=== PATIENT | female | born 1970 | race Caucasian/White ===

== ENCOUNTER 2016-05-11 05:19 | Outpatient (RCR) | payer MEDICARE, MEDICAID ==
[~2016-05-11] VITALS: Ht 180.3 cm; Wt 65.3 kg
[2016-05-11] MEDS ORDERED: Succinylcholine 20mg/ml 10ml vial ONE (05:20)
[2016-05-11] MEDS ORDERED: Glycopyrrolate 0.2mg/ml 1ml Vial ONE (05:20)
[2016-05-11] MEDS ORDERED: NS 550ML IV ONE (05:20)
[2016-05-11] MEDS ORDERED: Midazolam 2mg/2ml Inj ONE (05:20)
[2016-05-11] MEDS ORDERED: Methohexital Sodium Syr 100mg/10ml IVP ONE (05:20)
== END 2016-05-26 | disposition home or self-care (01) ==
LOC: ECT 05:19
DX: F25.9 Schizoaffective disorder, unspecified (principal); F06.1 Catatonic disorder due to known physiological condition
CPT/HCPCS: 90870; J0330; J2250; J7040

== ENCOUNTER 2016-07-15 06:54 | Outpatient (RCR) | payer MEDICARE, MEDICAID ==
[~2016-07-15] VITALS: Ht 180.3 cm; Wt 65.3 kg
[2016-07-15] MEDS ORDERED: Midazolam 2mg/2ml Inj ONE ×2 (06:55)
[2016-07-15] MEDS ORDERED: NS 550ML IV ONE ×2 (06:55)
[2016-07-15] MEDS ORDERED: Methohexital Sodium Syr 100mg/10ml IVP ONE ×2 (06:55)
[2016-07-15] MEDS ORDERED: Glycopyrrolate 0.2mg/ml 1ml Vial ONE ×2 (06:55)
[2016-07-15] MEDS ORDERED: Succinylcholine 20mg/ml 10ml vial ONE ×2 (06:55)
[2016-07-15] MEDS ORDERED: Atropine Sulfate 0.4mg/ml inj IVP PRN (08:00)
[2016-07-20] MEDS ORDERED: NS 550ML IV ONE (07:00)
[2016-07-20] MEDS ORDERED: Succinylcholine 20mg/ml 10ml vial ONE (07:00)
[2016-07-20] MEDS ORDERED: Methohexital Sodium Syr 100mg/10ml IVP ONE (07:00)
[2016-07-20] MEDS ORDERED: Midazolam 2mg/2ml Inj ONE (07:00)
[2016-07-20] MEDS ORDERED: Glycopyrrolate 0.2mg/ml 1ml Vial ONE (07:00)
[2016-07-22] MEDS ORDERED: Glycopyrrolate 0.2mg/ml 1ml Vial ONE (07:00)
[2016-07-22] MEDS ORDERED: Midazolam 2mg/2ml Inj ONE (07:00)
[2016-07-22] MEDS ORDERED: Succinylcholine 20mg/ml 10ml vial ONE (07:00)
[2016-07-22] MEDS ORDERED: NS 550ML IV ONE (07:00)
[2016-07-22] MEDS ORDERED: Methohexital Sodium Syr 100mg/10ml IVP ONE (07:00)
[2016-07-24] MEDS ORDERED: Succinylcholine 20mg/ml 10ml vial ONE (09:02)
[2016-07-24] MEDS ORDERED: Methohexital Sodium Syr 100mg/10ml IVP ONE (09:02)
[2016-07-24] MEDS ORDERED: Glycopyrrolate 0.2mg/ml 1ml Vial ONE (09:02)
[2016-07-24] MEDS ORDERED: Midazolam 2mg/2ml Inj ONE (09:02)
[2016-07-24] MEDS ORDERED: NS 550ML IV ONE (09:02)
== END 2016-07-24 | disposition home or self-care (01) ==
LOC: ECT 06:54
DX: F25.9 Schizoaffective disorder, unspecified (principal)
CPT/HCPCS: 90870; J0330; J2250; J7040

== ENCOUNTER 2016-07-27 10:59 | Outpatient (RCR) | payer MEDICARE, MEDICAID ==
[~2016-07-27] VITALS: Ht 180.3 cm; Wt 65.3 kg
[2016-07-27] MEDS ORDERED: Midazolam 2mg/2ml Inj ONE ×3 (11:00)
[2016-07-27] MEDS ORDERED: Glycopyrrolate 0.2mg/ml 1ml Vial ONE ×3 (11:00)
[2016-07-27] MEDS ORDERED: Methohexital Sodium Syr 100mg/10ml IVP ONE ×3 (11:00)
[2016-07-27] MEDS ORDERED: NS 550ML IV ONE ×3 (11:00)
[2016-07-27] MEDS ORDERED: Succinylcholine 20mg/ml 10ml vial ONE ×3 (11:00)
[2016-07-29] MEDS ORDERED: Succinylcholine 20mg/ml 10ml vial ONE (12:30)
[2016-07-29] MEDS ORDERED: Methohexital Sodium Syr 100mg/10ml IVP ONE (12:30)
[2016-07-29] MEDS ORDERED: Glycopyrrolate 0.2mg/ml 1ml Vial ONE (12:30)
[2016-07-29] MEDS ORDERED: NS 550ML IV ONE (12:30)
[2016-07-29] MEDS ORDERED: Midazolam 2mg/2ml Inj ONE (12:30)
[2016-07-31] MEDS ORDERED: Glycopyrrolate 0.2mg/ml 1ml Vial ONE ×2 (08:00)
[2016-07-31] MEDS ORDERED: Methohexital Sodium Syr 100mg/10ml IVP ONE ×2 (08:00)
[2016-07-31] MEDS ORDERED: Midazolam 2mg/2ml Inj ONE (08:00)
[2016-07-31] MEDS ORDERED: NS 550ML IV ONE ×2 (08:00)
[2016-07-31] MEDS ORDERED: Succinylcholine 20mg/ml 10ml vial ONE ×2 (08:00)
[2016-08-03] MEDS ORDERED: Atropine Sulfate 0.4mg/ml inj IVP PRN (17:30)
[2016-08-07] MEDS ORDERED: Methohexital Sodium Syr 100mg/10ml IVP ONE (21:18)
[2016-08-07] MEDS ORDERED: NS 550ML IV ONE (21:18)
[2016-08-07] MEDS ORDERED: Succinylcholine 20mg/ml 10ml vial ONE (21:18)
[2016-08-07] MEDS ORDERED: Midazolam 2mg/2ml Inj ONE (21:18)
[2016-08-07] MEDS ORDERED: Glycopyrrolate 0.2mg/ml 1ml Vial ONE (21:18)
[2016-08-10] MEDS ORDERED: Methohexital Sodium Syr 100mg/10ml IVP ONE (08:00)
[2016-08-10] MEDS ORDERED: NS 550ML IV ONE (08:00)
[2016-08-10] MEDS ORDERED: Glycopyrrolate 0.2mg/ml 1ml Vial ONE (08:00)
[2016-08-10] MEDS ORDERED: Succinylcholine 20mg/ml 10ml vial ONE (08:00)
[2016-08-10] MEDS ORDERED: Midazolam 2mg/2ml Inj ONE (08:00)
[2016-08-14] MEDS ORDERED: Methohexital Sodium Syr 100mg/10ml IVP ONE (08:00)
[2016-08-14] MEDS ORDERED: NS 550ML IV ONE (08:00)
[2016-08-14] MEDS ORDERED: Midazolam 2mg/2ml Inj ONE (08:00)
[2016-08-14] MEDS ORDERED: Succinylcholine 20mg/ml 10ml vial ONE (08:00)
[2016-08-14] MEDS ORDERED: Glycopyrrolate 0.2mg/ml 1ml Vial ONE (08:00)
[2016-08-19] MEDS ORDERED: Atropine Sulfate 0.4mg/ml inj IVP PRN (09:33)
== END 2016-08-23 | disposition home or self-care (01) ==
LOC: ECT 10:59
DX: F25.9 Schizoaffective disorder, unspecified (principal)
CPT/HCPCS: 90870; J0330; J2250; J7040

== ENCOUNTER 2016-08-26 05:18 | Outpatient (RCR) | payer MEDICARE, MEDICAID ==
[~2016-08-26] VITALS: Ht 180.3 cm; Wt 65.3 kg
[2016-08-26] MEDS ORDERED: Midazolam 2mg/2ml Inj ONE (05:19)
[2016-08-26] MEDS ORDERED: Succinylcholine 20mg/ml 10ml vial ONE (05:19)
[2016-08-26] MEDS ORDERED: Methohexital Sodium Syr 100mg/10ml IVP ONE (05:19)
[2016-08-26] MEDS ORDERED: NS 550ML IV ONE (05:19)
[2016-08-26] MEDS ORDERED: Glycopyrrolate 0.2mg/ml 1ml Vial ONE (05:19)
[2016-09-07] MEDS ORDERED: Glycopyrrolate 0.2mg/ml 1ml Vial ONE (07:00)
[2016-09-07] MEDS ORDERED: Succinylcholine 20mg/ml 10ml vial ONE (07:00)
[2016-09-07] MEDS ORDERED: Midazolam 2mg/2ml Inj ONE (07:00)
[2016-09-07] MEDS ORDERED: Methohexital Sodium Syr 100mg/10ml IVP ONE (07:00)
[2016-09-07] MEDS ORDERED: NS 550ML IV ONE (07:00)
== END 2016-09-23 | disposition home or self-care (01) ==
LOC: ECT 05:18
DX: F25.9 Schizoaffective disorder, unspecified (principal)
CPT/HCPCS: 90870; J0330; J2250; J7040

== ENCOUNTER 2016-09-25 06:41 | Outpatient (RCR) | payer MEDICARE, MEDICAID ==
[~2016-09-25] VITALS: Ht 180.3 cm; Wt 65.3 kg
[2016-09-25] MEDS ORDERED: Atropine Sulfate 0.4mg/ml inj IVP PRN (09:25)
[2016-10-16] MEDS ORDERED: NS 550ML IV ONE (08:00)
[2016-10-16] MEDS ORDERED: Midazolam 2mg/2ml Inj ONE (08:00)
[2016-10-16] MEDS ORDERED: Methohexital Sodium Syr 100mg/10ml IVP ONE (08:00)
[2016-10-16] MEDS ORDERED: Succinylcholine 20mg/ml 10ml vial ONE (08:00)
[2016-10-16] MEDS ORDERED: Glycopyrrolate 0.2mg/ml 1ml Vial ONE (08:00)
== END 2016-10-23 | disposition home or self-care (01) ==
LOC: ECT 06:41
DX: F25.9 Schizoaffective disorder, unspecified (principal)
CPT/HCPCS: 90870; J0330; J2250; J7040

== ENCOUNTER 2016-11-13 05:45 | Outpatient (RCR) | payer MEDICARE, MEDICAID ==
[~2016-11-13] VITALS: Ht 180.3 cm; Wt 65.3 kg
[2016-11-13] MEDS ORDERED: Midazolam 2mg/2ml Inj ONE (05:46)
[2016-11-13] MEDS ORDERED: Methohexital Sodium Syr 100mg/10ml IVP ONE (05:46)
[2016-11-13] MEDS ORDERED: Succinylcholine 20mg/ml 10ml vial ONE (05:46)
[2016-11-13] MEDS ORDERED: NS 550ML IV ONE (05:46)
[2016-11-13] MEDS ORDERED: Glycopyrrolate 0.2mg/ml 1ml Vial ONE (05:46)
== END 2016-11-23 | disposition home or self-care (01) ==
LOC: ECT 05:45
DX: F25.9 Schizoaffective disorder, unspecified (principal)
CPT/HCPCS: 90870; J0330; J2250; J7040

== ENCOUNTER 2016-12-16 10:14 | Outpatient (RCR) | payer MEDICARE, MEDICAID ==
[~2016-12-16] VITALS: Ht 180.3 cm; Wt 65.3 kg
[2016-12-16] MEDS ORDERED: NS 550ML IV ONE (10:15)
[2016-12-16] MEDS ORDERED: Succinylcholine 20mg/ml 10ml vial ONE (10:15)
[2016-12-16] MEDS ORDERED: Midazolam 2mg/2ml Inj ONE (10:15)
[2016-12-16] MEDS ORDERED: Methohexital Sodium Syr 100mg/10ml IVP ONE (10:15)
[2016-12-16] MEDS ORDERED: Glycopyrrolate 0.2mg/ml 1ml Vial ONE (10:15)
== END 2016-12-24 | disposition home or self-care (01) ==
LOC: ECT 10:14
DX: F25.9 Schizoaffective disorder, unspecified (principal)
CPT/HCPCS: 90870; J0330; J2250; J7040

== ENCOUNTER 2017-01-13 07:16 | Outpatient (RCR) | payer MEDICARE, MEDICAID ==
[~2017-01-13] VITALS: Ht 180.3 cm; Wt 65.3 kg
[2017-01-13] MEDS ORDERED: Methohexital Sodium Syr 100mg/10ml IVP ONE (07:17)
[2017-01-13] MEDS ORDERED: Succinylcholine 20mg/ml 10ml vial ONE (07:17)
[2017-01-13] MEDS ORDERED: NS 500ML IV ONE (07:17)
[2017-01-13] MEDS ORDERED: Midazolam 2mg/2ml Inj ONE (07:17)
[2017-01-13] MEDS ORDERED: Glycopyrrolate 0.2mg/ml 1ml Vial ONE (07:17)
[2017-01-13] MEDS ORDERED: Sodium Chloride 500ML 500 ML IV ONE (09:31)
== END 2017-01-23 | disposition home or self-care (01) ==
LOC: ECT 07:16
DX: F25.9 Schizoaffective disorder, unspecified (principal)
CPT/HCPCS: 90870; J0330; J2250; J7040

== ENCOUNTER 2017-02-12 06:53 | Outpatient (RCR) | payer MEDICARE, MEDICAID ==
[~2017-02-12] VITALS: Ht 30.5 cm; Wt 0.5 kg
[2017-02-12] MEDS ORDERED: Succinylcholine 20mg/ml 10ml vial ONE (06:54)
[2017-02-12] MEDS ORDERED: Midazolam 2mg/2ml Inj ONE (06:54)
[2017-02-12] MEDS ORDERED: NS 500ML IV ONE (06:54)
[2017-02-12] MEDS ORDERED: Glycopyrrolate 0.2mg/ml 1ml Vial ONE (06:54)
[2017-02-12] MEDS ORDERED: Methohexital Sodium 500mg Vial IVP ONE (06:54)
[2017-02-12 09:00] VITALS: BP 103/72
[2017-02-12] MEDS ORDERED: Sodium Chloride 500ML 500 ML IV ONE (09:24)
[2017-02-12 09:25] VITALS: BP 119/76
[2017-02-12 09:30] VITALS: BP 115/72
[2017-02-12 09:35] VITALS: BP 110/67
[2017-02-12 09:40] VITALS: BP 110/67
== END 2017-02-23 | disposition home or self-care (01) ==
LOC: ECT 06:53
DX: F25.9 Schizoaffective disorder, unspecified (principal)
CPT/HCPCS: 90870; J0330; J2250; J3490; J7040

== ENCOUNTER 2017-03-12 05:47 | Outpatient (RCR) | payer MEDICARE, MEDICAID ==
[~2017-03-12] VITALS: Ht 180.3 cm; Wt 65.3 kg
[2017-03-12] MEDS ORDERED: Methohexital Sodium Syr 100mg/10ml IVP ONE (05:48)
[2017-03-12] MEDS ORDERED: Midazolam 2mg/2ml Inj ONE (05:48)
[2017-03-12] MEDS ORDERED: Succinylcholine 20mg/ml 10ml vial ONE (05:48)
[2017-03-12] MEDS ORDERED: Glycopyrrolate 0.2mg/ml 1ml Vial ONE (05:48)
[2017-03-12] MEDS ORDERED: NS 500ML ONE (05:48)
[2017-03-12 08:27] VITALS: BP 103/72
[2017-03-12 08:45] VITALS: BP 115/62
[2017-03-12] MEDS ORDERED: Sodium Chloride 500ML 500 ML IV ONE (08:45)
[2017-03-12 08:50] VITALS: BP 112/66
[2017-03-12 08:55] VITALS: BP 109/53
[2017-03-12 09:00] VITALS: BP 107/58
== END 2017-03-25 | disposition home or self-care (01) ==
LOC: ECT 05:47
DX: F25.9 Schizoaffective disorder, unspecified (principal)
CPT/HCPCS: 90870; J0330; J2250; J7040

== ENCOUNTER 2017-04-16 04:45 | Outpatient (RCR) | payer MEDICARE, MEDICAID ==
[~2017-04-16] VITALS: Ht 30.5 cm; Wt 0.5 kg
[2017-04-16] MEDS ORDERED: Methohexital Sodium Syr 100mg/10ml IVP ONE (04:46)
[2017-04-16] MEDS ORDERED: Glycopyrrolate 0.2mg/ml 1ml Vial ONE (04:46)
[2017-04-16] MEDS ORDERED: Succinylcholine 20mg/ml 10ml vial ONE (04:46)
[2017-04-16] MEDS ORDERED: Midazolam 2mg/2ml Inj ONE (04:46)
[2017-04-16] MEDS ORDERED: NS 500ML ONE (04:46)
[2017-04-16 08:03] VITALS: BP 104/74
[2017-04-16] MEDS ORDERED: Sodium Chloride 500ML 500 ML IV ONE (08:20)
[2017-04-16 08:25] VITALS: BP 109/63
[2017-04-16 08:30] VITALS: BP 107/64
[2017-04-16 08:35] VITALS: BP 103/59
[2017-04-16 08:40] VITALS: BP 105/65
[2017-04-16 08:45] VITALS: BP 108/59
== END 2017-04-25 | disposition home or self-care (01) ==
LOC: ECT 04:45
DX: F25.9 Schizoaffective disorder, unspecified (principal); F06.1 Catatonic disorder due to known physiological condition
CPT/HCPCS: 90870; J0330; J2250; J7040

== ENCOUNTER 2017-05-21 05:36 | Outpatient (RCR) | payer MEDICARE, MEDICAID ==
[~2017-05-21] VITALS: Ht 180.3 cm; Wt 65.3 kg
[2017-05-21] MEDS ORDERED: NS 500ML ONE (05:37)
[2017-05-21] MEDS ORDERED: Glycopyrrolate 0.2mg/ml 1ml Vial ONE (05:37)
[2017-05-21] MEDS ORDERED: Methohexital Sodium Syr 100mg/10ml IVP ONE (05:37)
[2017-05-21] MEDS ORDERED: Midazolam 2mg/2ml Inj ONE (05:37)
[2017-05-21] MEDS ORDERED: Succinylcholine 20mg/ml 10ml vial ONE (05:37)
[2017-05-21 08:12] VITALS: BP 108/76
[2017-05-21] MEDS ORDERED: Sodium Chloride 500ML 500 ML IV ONE (08:33)
[2017-05-21 08:35] VITALS: BP 113/70
[2017-05-21 08:40] VITALS: BP 112/64
[2017-05-21 08:45] VITALS: BP 115/73
[2017-05-21 08:50] VITALS: BP 116/74
== END 2017-05-26 | disposition home or self-care (01) ==
LOC: ECT 05:36
DX: F25.9 Schizoaffective disorder, unspecified (principal); F06.1 Catatonic disorder due to known physiological condition
CPT/HCPCS: 90870; J0330; J2250; J7040

== ENCOUNTER 2017-06-25 05:16 | Outpatient (RCR) | payer MEDICARE, MEDICAID ==
[~2017-06-25] VITALS: Ht 180.3 cm; Wt 65.3 kg
[2017-06-25] MEDS ORDERED: Methohexital Sodium Syr 100mg/10ml IVP ONE (05:17)
[2017-06-25] MEDS ORDERED: Midazolam 2mg/2ml Inj ONE (05:17)
[2017-06-25] MEDS ORDERED: Glycopyrrolate 0.2mg/ml 1ml Vial ONE (05:17)
[2017-06-25] MEDS ORDERED: NS 500ML ONE (05:17)
[2017-06-25] MEDS ORDERED: Succinylcholine 20mg/ml 10ml vial ONE (05:17)
[2017-06-25 08:31] VITALS: BP 107/84
[2017-06-25] MEDS ORDERED: Atropine Sulfate 0.4mg/ml inj IVP PRN (08:52)
[2017-06-25] MEDS ORDERED: Sodium Chloride 500ML 500 ML IV ONE (08:52)
[2017-06-25 08:55] VITALS: BP 102/61
[2017-06-25 09:00] VITALS: BP 105/57
[2017-06-25 09:05] VITALS: BP 104/55
[2017-06-25 09:10] VITALS: BP 102/58
[2017-06-25 09:15] VITALS: BP 104/62
[2017-07-07] MEDS ORDERED: Succinylcholine 20mg/ml 10ml vial ONE (08:00)
[2017-07-07] MEDS ORDERED: Midazolam 2mg/2ml Inj ONE (08:00)
[2017-07-07] MEDS ORDERED: Methohexital Sodium Syr 100mg/10ml IVP ONE (08:00)
[2017-07-07] MEDS ORDERED: Glycopyrrolate 0.2mg/ml 1ml Vial ONE (08:00)
[2017-07-07] MEDS ORDERED: NS 500ML ONE (08:00)
[2017-07-07 10:48] VITALS: BP 122/80
[2017-07-07] MEDS ORDERED: Sodium Chloride 500ML 500 ML IV ONE (11:07)
[2017-07-07 11:10] VITALS: BP 113/62
[2017-07-07 11:15] VITALS: BP 109/63
[2017-07-07 11:20] VITALS: BP 106/69
[2017-07-07 11:25] VITALS: BP 113/65
[2017-07-09] MEDS ORDERED: Methohexital Sodium Syr 100mg/10ml IVP ONE (07:00)
[2017-07-09] MEDS ORDERED: NS 500ML ONE (07:00)
[2017-07-09] MEDS ORDERED: Succinylcholine 20mg/ml 10ml vial ONE (07:00)
[2017-07-09] MEDS ORDERED: Midazolam 2mg/2ml Inj ONE (07:00)
[2017-07-09] MEDS ORDERED: Glycopyrrolate 0.2mg/ml 1ml Vial ONE (07:00)
[2017-07-09 08:00] VITALS: BP 114/83
[2017-07-09] MEDS ORDERED: Sodium Chloride 500ML 500 ML IV ONE (08:17)
[2017-07-09 08:20] VITALS: BP 112/59
[2017-07-09 08:25] VITALS: BP 118/62
[2017-07-09 08:30] VITALS: BP 111/70
[2017-07-09 08:35] VITALS: BP 114/70
[2017-07-12] MEDS ORDERED: Glycopyrrolate 0.2mg/ml 1ml Vial ONE (06:00)
[2017-07-12] MEDS ORDERED: Methohexital Sodium Syr 100mg/10ml IVP ONE (06:00)
[2017-07-12] MEDS ORDERED: Succinylcholine 20mg/ml 10ml vial ONE (06:00)
[2017-07-12] MEDS ORDERED: NS 500ML ONE (06:00)
[2017-07-12] MEDS ORDERED: Midazolam 2mg/2ml Inj ONE (06:00)
[2017-07-12 08:42] VITALS: BP 114/84
[2017-07-12] MEDS ORDERED: Sodium Chloride 500ML 500 ML IV ONE (08:53)
[2017-07-12 08:55] VITALS: BP 120/74
[2017-07-12 09:00] VITALS: BP 119/77
[2017-07-12 09:05] VITALS: BP 118/77
[2017-07-12 09:10] VITALS: BP 120/73
[2017-07-14] MEDS ORDERED: Midazolam 2mg/2ml Inj ONE (06:00)
[2017-07-14] MEDS ORDERED: Glycopyrrolate 0.2mg/ml 1ml Vial ONE (06:00)
[2017-07-14] MEDS ORDERED: Succinylcholine 20mg/ml 10ml vial ONE (06:00)
[2017-07-14] MEDS ORDERED: Methohexital Sodium Syr 100mg/10ml IVP ONE (06:00)
[2017-07-14] MEDS ORDERED: NS 500ML ONE (06:00)
[2017-07-14 07:53] VITALS: BP 126/87
[2017-07-14 08:10] VITALS: BP 122/75
[2017-07-14] MEDS ORDERED: Sodium Chloride 500ML 500 ML IV ONE (08:10)
[2017-07-14 08:15] VITALS: BP 120/77
[2017-07-14 08:20] VITALS: BP 125/78
[2017-07-14 08:25] VITALS: BP 126/80
[2017-07-16] MEDS ORDERED: Methohexital Sodium Syr 100mg/10ml IVP ONE (08:00)
[2017-07-16] MEDS ORDERED: NS 500ML ONE (08:00)
[2017-07-16] MEDS ORDERED: Midazolam 2mg/2ml Inj ONE (08:00)
[2017-07-16] MEDS ORDERED: Succinylcholine 20mg/ml 10ml vial ONE (08:00)
[2017-07-16] MEDS ORDERED: Glycopyrrolate 0.2mg/ml 1ml Vial ONE (08:00)
[2017-07-16 08:22] VITALS: BP 120/84
[2017-07-16] MEDS ORDERED: Sodium Chloride 500ML 500 ML IV ONE ×2 (08:36→08:48)
[2017-07-16] MEDS ORDERED: Atropine Sulfate 0.4mg/ml inj IVP PRN (08:48)
[2017-07-19] MEDS ORDERED: Succinylcholine 20mg/ml 10ml vial ONE (07:00)
[2017-07-19] MEDS ORDERED: Glycopyrrolate 0.2mg/ml 1ml Vial ONE (07:00)
[2017-07-19] MEDS ORDERED: Methohexital Sodium Syr 100mg/10ml IVP ONE (07:00)
[2017-07-19] MEDS ORDERED: Midazolam 2mg/2ml Inj ONE (07:00)
[2017-07-19] MEDS ORDERED: NS 500ML ONE (07:00)
[2017-07-19 08:25] VITALS: BP 115/85
[2017-07-19 08:50] VITALS: BP 109/70
[2017-07-19 08:55] VITALS: BP 112/64
[2017-07-19 09:00] VITALS: BP 125/58
[2017-07-19 09:05] VITALS: BP 118/55
[2017-07-21] MEDS ORDERED: Glycopyrrolate 0.2mg/ml 1ml Vial ONE (08:00)
[2017-07-21] MEDS ORDERED: NS 500ML ONE (08:00)
[2017-07-21] MEDS ORDERED: Methohexital Sodium Syr 100mg/10ml IVP ONE (08:00)
[2017-07-21] MEDS ORDERED: Midazolam 2mg/2ml Inj ONE (08:00)
[2017-07-21] MEDS ORDERED: Succinylcholine 20mg/ml 10ml vial ONE (08:00)
[2017-07-21 08:26] VITALS: BP 113/81
[2017-07-21] MEDS ORDERED: Sodium Chloride 500ML 500 ML IV ONE (08:44)
[2017-07-21 08:45] VITALS: BP 106/57
[2017-07-21 08:50] VITALS: BP 102/58
[2017-07-21 08:55] VITALS: BP 104/59
[2017-07-21 09:00] VITALS: BP 110/64
[2017-07-23] MEDS ORDERED: NS 500ML ONE (08:00)
[2017-07-23] MEDS ORDERED: SUMAtriptan 6mg/0.5ml Inj SUBQ ONE (08:00)
[2017-07-23] MEDS ORDERED: Midazolam 2mg/2ml Inj ONE (08:00)
[2017-07-23] MEDS ORDERED: Methohexital Sodium Syr 100mg/10ml IVP ONE (08:00)
[2017-07-23] MEDS ORDERED: Glycopyrrolate 0.2mg/ml 1ml Vial ONE (08:00)
[2017-07-23 08:50] VITALS: BP 102/73
[2017-07-23] MEDS ORDERED: Atropine Sulfate 0.4mg/ml inj IVP PRN (09:08)
[2017-07-23] MEDS ORDERED: Sodium Chloride 500ML 500 ML IV ONE (09:08)
[2017-07-23 09:10] VITALS: BP 110/57
[2017-07-23 09:15] VITALS: BP 103/57
[2017-07-23 09:20] VITALS: BP 110/48
[2017-07-23 09:25] VITALS: BP 104/62
== END 2017-07-24 | disposition home or self-care (01) ==
LOC: ECT 05:16
DX: F25.9 Schizoaffective disorder, unspecified (principal)
CPT/HCPCS: 90870; J0330; J2250; J3030; J7040

== ENCOUNTER 2017-07-26 09:18 | Outpatient (RCR) | payer MEDICARE, MEDICAID ==
[~2017-07-26] VITALS: Ht 180.3 cm; Wt 65.3 kg
[~2017-07-26 09:18] MED LIST: Atropine Sulfate 0.4mg/ml inj IVP PRN; Sodium Chloride 500ML 500 ML IV ONE
[2017-07-26] MEDS ORDERED: NS 500ML ONE ×4 (09:19)
[2017-07-26] MEDS ORDERED: Methohexital Sodium 500mg Vial IVP ONE (09:19)
[2017-07-26] MEDS ORDERED: Methohexital Sodium Syr 100mg/10ml IVP ONE ×3 (09:19)
[2017-07-26] MEDS ORDERED: Succinylcholine 20mg/ml 10ml vial ONE ×4 (09:19)
[2017-07-26] MEDS ORDERED: Midazolam 2mg/2ml Inj ONE ×4 (09:19)
[2017-07-26] MEDS ORDERED: Glycopyrrolate 0.2mg/ml 1ml Vial ONE ×4 (09:19)
[2017-07-26 10:42] VITALS: BP 103/74
[2017-07-26 11:00] VITALS: BP 109/50
[2017-07-26 11:05] VITALS: BP 114/65
[2017-07-26 11:10] VITALS: BP 107/62
[2017-07-26 11:15] VITALS: BP 112/54
[2017-07-30] MEDS ORDERED: Methohexital Sodium Syr 100mg/10ml IVP ONE (07:00)
[2017-07-30] MEDS ORDERED: Midazolam 2mg/2ml Inj ONE (07:00)
[2017-07-30] MEDS ORDERED: Glycopyrrolate 0.2mg/ml 1ml Vial ONE (07:00)
[2017-07-30] MEDS ORDERED: NS 500ML ONE (07:00)
[2017-07-30] MEDS ORDERED: Succinylcholine 20mg/ml 10ml vial ONE (07:00)
[2017-07-30 08:07] VITALS: BP 104/74
[2017-07-30 08:20] VITALS: BP 105/55
[2017-07-30] MEDS ORDERED: Sodium Chloride 500ML 500 ML IV ONE (08:22)
[2017-07-30 08:30] VITALS: BP 107/59
[2017-07-30 08:35] VITALS: BP 108/60
[2017-07-30 08:40] VITALS: BP 108/53
[2017-08-02] MEDS ORDERED: Sodium Chloride 500ML 500 ML IV ONE (10:58)
[2017-08-04 09:38] VITALS: BP 106/70
[2017-08-04 09:55] VITALS: BP 104/62
[2017-08-04] MEDS ORDERED: Sodium Chloride 500ML 500 ML IV ONE (09:55)
[2017-08-04 10:00] VITALS: BP 100/60
[2017-08-04 10:05] VITALS: BP 100/59
[2017-08-04 10:10] VITALS: BP 100/58
[2017-08-06] MEDS ORDERED: NS 500ML ONE (07:00)
[2017-08-06] MEDS ORDERED: Succinylcholine 20mg/ml 10ml vial ONE (07:00)
[2017-08-06] MEDS ORDERED: Glycopyrrolate 0.2mg/ml 1ml Vial ONE (07:00)
[2017-08-06] MEDS ORDERED: Methohexital Sodium Syr 100mg/10ml IVP ONE (07:00)
[2017-08-06] MEDS ORDERED: Midazolam 2mg/2ml Inj ONE (07:00)
[2017-08-06 08:25] VITALS: BP 107/73
[2017-08-06] MEDS ORDERED: Sodium Chloride 500ML 500 ML IV ONE (08:39)
[2017-08-06 08:40] VITALS: BP 112/59
[2017-08-06 08:45] VITALS: BP 110/61
[2017-08-06 08:50] VITALS: BP 111/69
[2017-08-06 08:55] VITALS: BP 112/67
[2017-08-09] MEDS ORDERED: Glycopyrrolate 0.2mg/ml 1ml Vial ONE (06:00)
[2017-08-09] MEDS ORDERED: Midazolam 2mg/2ml Inj ONE (06:00)
[2017-08-09] MEDS ORDERED: Methohexital Sodium Syr 100mg/10ml IVP ONE (06:00)
[2017-08-09] MEDS ORDERED: NS 500ML ONE (06:00)
[2017-08-09] MEDS ORDERED: Succinylcholine 20mg/ml 10ml vial ONE (06:00)
[2017-08-09 09:23] VITALS: BP 112/79
[2017-08-09] MEDS ORDERED: Sodium Chloride 500ML 500 ML IV ONE (09:43)
[2017-08-09 09:45] VITALS: BP 123/66
[2017-08-09 09:50] VITALS: BP 119/64
[2017-08-09 09:55] VITALS: BP 114/69
[2017-08-09 10:01] VITALS: BP 117/74
[2017-08-13 08:30] VITALS: BP 114/84
[2017-08-13 08:53] VITALS: BP 121/57
[2017-08-13] MEDS ORDERED: Atropine Sulfate 0.4mg/ml inj IVP PRN (08:53)
[2017-08-13] MEDS ORDERED: Sodium Chloride 500ML 500 ML IV ONE (08:53)
[2017-08-13 08:58] VITALS: BP 112/60
[2017-08-13 09:03] VITALS: BP 120/72
[2017-08-13 09:08] VITALS: BP 110/59
[2017-08-16] MEDS ORDERED: Methohexital Sodium Syr 100mg/10ml IVP ONE (08:00)
[2017-08-16] MEDS ORDERED: Glycopyrrolate 0.2mg/ml 1ml Vial ONE (08:00)
[2017-08-16] MEDS ORDERED: NS 500ML ONE (08:00)
[2017-08-16] MEDS ORDERED: Midazolam 2mg/2ml Inj ONE (08:00)
[2017-08-16] MEDS ORDERED: Succinylcholine 20mg/ml 10ml vial ONE (08:00)
[2017-08-16 09:30] VITALS: BP 103/53
[2017-08-16] MEDS ORDERED: Sodium Chloride 500ML 500 ML IV ONE (09:45)
[2017-08-16 09:50] VITALS: BP 122/46
[2017-08-16 09:55] VITALS: BP 114/55
[2017-08-16 10:00] VITALS: BP 121/51
[2017-08-16 10:05] VITALS: BP 105/81
[2017-08-20] MEDS ORDERED: Methohexital Sodium Syr 100mg/10ml IVP ONE (07:00)
[2017-08-20] MEDS ORDERED: Glycopyrrolate 0.2mg/ml 1ml Vial ONE (07:00)
[2017-08-20] MEDS ORDERED: Midazolam 2mg/2ml Inj ONE (07:00)
[2017-08-20] MEDS ORDERED: Succinylcholine 20mg/ml 10ml vial ONE (07:00)
[2017-08-20] MEDS ORDERED: NS 500ML ONE (07:00)
[2017-08-20 08:59] VITALS: BP 112/81
[2017-08-20] MEDS ORDERED: Sodium Chloride 500ML 500 ML IV ONE (09:13)
[2017-08-20 09:15] VITALS: BP 117/67
[2017-08-20 09:20] VITALS: BP 114/71
[2017-08-20 09:25] VITALS: BP 113/72
[2017-08-20 09:30] VITALS: BP 113/72
== END 2017-08-23 | disposition home or self-care (01) ==
LOC: ECT 09:18
DX: F25.9 Schizoaffective disorder, unspecified (principal)
CPT/HCPCS: 90870; J0330; J2250; J3490; J7040

== ENCOUNTER 2017-08-27 07:02 | Outpatient (RCR) | payer MEDICARE, MEDICAID ==
[~2017-08-27] VITALS: Ht 180.3 cm; Wt 65.3 kg
[2017-08-27] MEDS ORDERED: Succinylcholine 20mg/ml 10ml vial ONE (07:03)
[2017-08-27] MEDS ORDERED: Methohexital Sodium Syr 100mg/10ml IVP ONE (07:03)
[2017-08-27] MEDS ORDERED: Glycopyrrolate 0.2mg/ml 1ml Vial ONE (07:03)
[2017-08-27] MEDS ORDERED: NS 500ML ONE (07:03)
[2017-08-27] MEDS ORDERED: Midazolam 2mg/2ml Inj ONE (07:03)
[2017-08-27 07:56] VITALS: BP 101/72
[2017-08-27] MEDS ORDERED: Sodium Chloride 500ML 500 ML IV ONE (08:15)
[2017-08-27 08:20] VITALS: BP 106/61
[2017-08-27 08:25] VITALS: BP 102/63
[2017-08-27 08:30] VITALS: BP 104/62
[2017-08-27 08:35] VITALS: BP 103/66
[2017-09-08] MEDS ORDERED: Succinylcholine 20mg/ml 10ml vial ONE (07:00)
[2017-09-08] MEDS ORDERED: Methohexital Sodium Syr 100mg/10ml IVP ONE (07:00)
[2017-09-08] MEDS ORDERED: NS 500ML ONE (07:00)
[2017-09-08] MEDS ORDERED: Midazolam 2mg/2ml Inj ONE (07:00)
[2017-09-08] MEDS ORDERED: Glycopyrrolate 0.2mg/ml 1ml Vial ONE (07:00)
[2017-09-08 08:02] VITALS: BP 99/71
[2017-09-08] MEDS ORDERED: Atropine Sulfate 0.4mg/ml inj IVP PRN (08:23)
[2017-09-08] MEDS ORDERED: Sodium Chloride 500ML 500 ML IV ONE (08:23)
[2017-09-08 08:25] VITALS: BP 105/58
[2017-09-08 08:30] VITALS: BP 104/57
[2017-09-08 08:35] VITALS: BP 111/76
[2017-09-08 08:37] VITALS: BP 104/69
== END 2017-09-23 | disposition home or self-care (01) ==
LOC: ECT 07:02
DX: F25.9 Schizoaffective disorder, unspecified (principal)
CPT/HCPCS: 90870; J0330; J2250; J7040

== ENCOUNTER 2017-09-27 08:19 | Outpatient (RCR) | payer MEDICARE, MEDICAID ==
[~2017-09-27] VITALS: Ht 180.3 cm; Wt 65.3 kg
[2017-09-27 07:51] VITALS: BP 113/79
[2017-09-27 08:10] VITALS: BP 113/60
[2017-09-27 08:15] VITALS: BP 104/62
[~2017-09-27 08:19] MED LIST changes: -Atropine Sulfate 0.4mg/ml inj IVP PRN
[2017-09-27 08:20] VITALS: BP 107/71
[2017-09-27] MEDS ORDERED: NS 500ML ONE ×2 (08:20)
[2017-09-27] MEDS ORDERED: Midazolam 2mg/2ml Inj ONE ×2 (08:20)
[2017-09-27] MEDS ORDERED: Ketorolac 30mg Inj ONE (08:20)
[2017-09-27] MEDS ORDERED: Glycopyrrolate 0.2mg/ml 1ml Vial ONE ×2 (08:20)
[2017-09-27] MEDS ORDERED: Succinylcholine 20mg/ml 10ml vial ONE ×2 (08:20)
[2017-09-27] MEDS ORDERED: Methohexital Sodium Syr 100mg/10ml IVP ONE ×2 (08:20)
[2017-09-27 08:25] VITALS: BP 105/61
[2017-10-20] MEDS ORDERED: Methohexital Sodium Syr 100mg/10ml IVP ONE (07:00)
[2017-10-20] MEDS ORDERED: Succinylcholine 20mg/ml 10ml vial ONE (07:00)
[2017-10-20] MEDS ORDERED: Midazolam 2mg/2ml Inj ONE (07:00)
[2017-10-20] MEDS ORDERED: NS 500ML ONE (07:00)
[2017-10-20] MEDS ORDERED: Glycopyrrolate 0.2mg/ml 1ml Vial ONE (07:00)
[2017-10-20 08:05] VITALS: BP 105/74
[2017-10-20 08:25] VITALS: BP 106/73
[2017-10-20] MEDS ORDERED: Sodium Chloride 500ML 500 ML IV ONE (08:25)
[2017-10-20 08:30] VITALS: BP 105/65
[2017-10-20 08:35] VITALS: BP 163/72
== END 2017-10-23 | disposition home or self-care (01) ==
LOC: ECT 08:19
DX: F25.9 Schizoaffective disorder, unspecified (principal)
CPT/HCPCS: 90870; J0330; J1885; J2250; J7040

== ENCOUNTER 2017-11-15 05:10 | Outpatient (RCR) | payer MEDICARE, MEDICAID ==
[~2017-11-15] VITALS: Ht 180.3 cm; Wt 65.3 kg
[2017-11-15] MEDS ORDERED: Methohexital Sodium Syr 100mg/10ml IVP ONE (05:11)
[2017-11-15] MEDS ORDERED: Succinylcholine 20mg/ml 10ml vial ONE (05:11)
[2017-11-15] MEDS ORDERED: Midazolam 2mg/2ml Inj ONE (05:11)
[2017-11-15] MEDS ORDERED: Glycopyrrolate 0.2mg/ml 1ml Vial ONE (05:11)
[2017-11-15] MEDS ORDERED: NS 500ML ONE (05:11)
[2017-11-15 08:34] VITALS: BP 106/75
[2017-11-15] MEDS ORDERED: Sodium Chloride 500ML 500 ML IV ONE (08:58)
[2017-11-15] MEDS ORDERED: Atropine Sulfate 0.4mg/ml inj IVP PRN (08:58)
[2017-11-15 09:00] VITALS: BP 105/63
[2017-11-15 09:05] VITALS: BP 99/62
[2017-11-15 09:10] VITALS: BP 101/62
[2017-11-15 09:15] VITALS: BP 103/63
== END 2017-11-23 | disposition home or self-care (01) ==
LOC: ECT 05:10
DX: F25.9 Schizoaffective disorder, unspecified (principal)
CPT/HCPCS: 90870; J0330; J2250; J7040

== ENCOUNTER 2017-12-13 05:23 | Outpatient (RCR) | payer MEDICARE, MEDICAID ==
[~2017-12-13] VITALS: Ht 180.3 cm; Wt 65.3 kg
[2017-12-13] MEDS ORDERED: Methohexital Sodium Syr 100mg/10ml IVP ONE (05:24)
[2017-12-13] MEDS ORDERED: Midazolam 2mg/2ml Inj ONE (05:24)
[2017-12-13] MEDS ORDERED: NS 500ML ONE (05:24)
[2017-12-13] MEDS ORDERED: Glycopyrrolate 0.2mg/ml 1ml Vial ONE (05:24)
[2017-12-13] MEDS ORDERED: Succinylcholine 20mg/ml 10ml vial ONE (05:24)
[2017-12-13 08:24] VITALS: BP 105/74
[2017-12-13] MEDS ORDERED: Sodium Chloride 500ML 500 ML IV ONE (08:30)
[2017-12-13 08:40] VITALS: BP 115/64
[2017-12-13 08:45] VITALS: BP 111/68
[2017-12-13 08:50] VITALS: BP 110/63
== END 2017-12-24 | disposition home or self-care (01) ==
LOC: ECT 05:23
DX: F25.9 Schizoaffective disorder, unspecified (principal)
CPT/HCPCS: 90870; J0330; J2250; J7040

== ENCOUNTER 2018-01-10 07:59 | Outpatient (RCR) | payer MEDICARE, MEDICAID ==
[~2018-01-10] VITALS: Ht 30.5 cm; Wt 0.5 kg
[2018-01-10 07:45] VITALS: BP 104/74
[2018-01-10] MEDS ORDERED: Midazolam 2mg/2ml Inj ONE (08:00)
[2018-01-10] MEDS ORDERED: Succinylcholine 20mg/ml 10ml vial ONE (08:00)
[2018-01-10] MEDS ORDERED: Glycopyrrolate 0.2mg/ml 1ml Vial ONE (08:00)
[2018-01-10] MEDS ORDERED: Sodium Chloride 500ML 500 ML IV ONE (08:00)
[2018-01-10] MEDS ORDERED: NS 500ML ONE (08:00)
[2018-01-10] MEDS ORDERED: Methohexital Sodium Syr 100mg/10ml IVP ONE (08:00)
[2018-01-10 08:05] VITALS: BP 113/60
[2018-01-10 08:10] VITALS: BP 109/65
[2018-01-10 08:15] VITALS: BP 108/70
[2018-01-10 08:20] VITALS: BP 109/67
== END 2018-01-23 | disposition home or self-care (01) ==
LOC: ECT 07:59
DX: F25.9 Schizoaffective disorder, unspecified (principal)
CPT/HCPCS: 90870; J0330; J2250; J7040

== ENCOUNTER 2018-02-07 08:38 | Outpatient (RCR) | payer MEDICARE, MEDICAID ==
[~2018-02-07] VITALS: Ht 30.5 cm; Wt 0.5 kg
[2018-02-07 07:58] VITALS: BP 100/73
[2018-02-07 08:15] VITALS: BP 116/64
[2018-02-07 08:20] VITALS: BP 109/62
[2018-02-07 08:25] VITALS: BP 111/57
[2018-02-07 08:30] VITALS: BP 110/67
[2018-02-07] MEDS ORDERED: Glycopyrrolate 0.2mg/ml 1ml Vial ONE (08:39)
[2018-02-07] MEDS ORDERED: Succinylcholine 20mg/ml 10ml vial ONE (08:39)
[2018-02-07] MEDS ORDERED: NS 500ML ONE (08:39)
[2018-02-07] MEDS ORDERED: Methohexital Sodium Syr 100mg/10ml IVP ONE (08:39)
[2018-02-07] MEDS ORDERED: Midazolam 2mg/2ml Inj ONE (08:39)
== END 2018-02-23 | disposition home or self-care (01) ==
LOC: ECT 08:38
DX: F25.9 Schizoaffective disorder, unspecified (principal)
CPT/HCPCS: 90870; J0330; J2250; J7040

== ENCOUNTER 2018-03-04 04:58 | Outpatient (RCR) | payer MEDICARE, MEDICAID ==
[~2018-03-04] VITALS: Ht 180.3 cm; Wt 65.3 kg
[2018-03-04] MEDS ORDERED: NS 500ML ONE (04:59)
[2018-03-04] MEDS ORDERED: Succinylcholine 20mg/ml 10ml vial ONE (04:59)
[2018-03-04] MEDS ORDERED: Midazolam 2mg/2ml Inj ONE (04:59)
[2018-03-04] MEDS ORDERED: Glycopyrrolate 0.2mg/ml 1ml Vial ONE (04:59)
[2018-03-04] MEDS ORDERED: Methohexital Sodium Syr 100mg/10ml IVP ONE (04:59)
[2018-03-04 07:31] VITALS: BP 110/74
[2018-03-04] MEDS ORDERED: Sodium Chloride 500ML 500 ML IV ONE (07:48)
[2018-03-04 07:50] VITALS: BP 110/64
[2018-03-04 07:55] VITALS: BP 107/54
[2018-03-04 08:00] VITALS: BP 110/58
[2018-03-04 08:05] VITALS: BP 100/53
== END 2018-03-25 | disposition home or self-care (01) ==
LOC: ECT 04:58
DX: F25.9 Schizoaffective disorder, unspecified (principal)
CPT/HCPCS: 90870; J0330; J2250; J7040

== ENCOUNTER 2018-04-04 06:57 | Outpatient (RCR) | payer MEDICARE, MEDICAID ==
[~2018-04-04] VITALS: Ht 30.5 cm; Wt 0.5 kg
[2018-04-04] MEDS ORDERED: NS 500ML ONE (06:58)
[2018-04-04] MEDS ORDERED: Succinylcholine 20mg/ml 10ml vial ONE (06:58)
[2018-04-04] MEDS ORDERED: Methohexital Sodium Syr 100mg/10ml IVP ONE (06:58)
[2018-04-04] MEDS ORDERED: Midazolam 2mg/2ml Inj ONE (06:58)
[2018-04-04] MEDS ORDERED: Glycopyrrolate 0.2mg/ml 1ml Vial ONE (06:58)
[2018-04-04 09:02] VITALS: BP 107/74
[2018-04-04] MEDS ORDERED: Sodium Chloride 500ML 500 ML IV ONE (09:17)
[2018-04-04 09:20] VITALS: BP 109/76
[2018-04-04 09:25] VITALS: BP 115/61
[2018-04-04 09:30] VITALS: BP 111/61
[2018-04-04 09:35] VITALS: BP 111/69
== END 2018-04-25 | disposition home or self-care (01) ==
LOC: ECT 06:57
DX: F25.9 Schizoaffective disorder, unspecified (principal)
CPT/HCPCS: 90870; J0330; J2250; J7040

== ENCOUNTER 2018-05-02 07:34 | Outpatient (RCR) | payer MEDICARE, MEDICAID ==
[~2018-05-02] VITALS: Ht 30.5 cm; Wt 0.5 kg
[2018-05-02] MEDS ORDERED: Glycopyrrolate 0.2mg/ml 1ml Vial ONE (07:35)
[2018-05-02] MEDS ORDERED: Midazolam 2mg/2ml Inj ONE (07:35)
[2018-05-02] MEDS ORDERED: NS 500ML ONE (07:35)
[2018-05-02] MEDS ORDERED: Succinylcholine 20mg/ml 10ml vial ONE (07:35)
[2018-05-02] MEDS ORDERED: Methohexital Sodium Syr 100mg/10ml IVP ONE (07:35)
[2018-05-02 08:30] VITALS: BP 110/74
[2018-05-02 08:45] VITALS: BP 113/63
[2018-05-02 08:50] VITALS: BP 105/63
[2018-05-02 08:55] VITALS: BP 108/67
[2018-05-02 09:00] VITALS: BP 111/69
== END 2018-05-26 | disposition home or self-care (01) ==
LOC: ECT 07:34
DX: F25.9 Schizoaffective disorder, unspecified (principal); F06.1 Catatonic disorder due to known physiological condition
CPT/HCPCS: 90870; J0330; J2250; J7040

== ENCOUNTER 2018-05-30 04:44 | Outpatient (RCR) | payer MEDICARE, MEDICAID ==
[~2018-05-30] VITALS: Ht 30.5 cm; Wt 0.5 kg
[2018-05-30] MEDS ORDERED: Succinylcholine 20mg/ml 10ml vial ONE (04:45)
[2018-05-30] MEDS ORDERED: Methohexital Sodium Syr 100mg/10ml IVP ONE (04:45)
[2018-05-30] MEDS ORDERED: Midazolam 2mg/2ml Inj ONE (04:45)
[2018-05-30] MEDS ORDERED: NS 500ML ONE (04:45)
[2018-05-30] MEDS ORDERED: Glycopyrrolate 0.2mg/ml 1ml Vial ONE (04:45)
[2018-05-30 08:15] VITALS: BP 105/74
[2018-05-30 08:35] VITALS: BP 118/67
[2018-05-30 08:40] VITALS: BP 110/58
[2018-05-30 08:45] VITALS: BP 108/69
[2018-05-30 08:46] VITALS: BP 109/58
[2018-05-30 08:50] VITALS: BP 108/60
== END 2018-06-23 | disposition home or self-care (01) ==
LOC: ECT 04:44
DX: F25.9 Schizoaffective disorder, unspecified (principal)
CPT/HCPCS: 90870; J0330; J2250; J7040

== ENCOUNTER 2018-07-04 04:32 | Outpatient (RCR) | payer MEDICARE, MEDICAID ==
[~2018-07-04] VITALS: Ht 180.3 cm; Wt 65.3 kg
[2018-07-04] MEDS ORDERED: Glycopyrrolate 0.2mg/ml 1ml Vial ONE (04:33)
[2018-07-04] MEDS ORDERED: Midazolam 2mg/2ml Inj ONE (04:33)
[2018-07-04] MEDS ORDERED: NS 500ML ONE (04:33)
[2018-07-04] MEDS ORDERED: Succinylcholine 20mg/ml 10ml vial ONE (04:33)
[2018-07-04] MEDS ORDERED: Methohexital Sodium Syr 100mg/10ml IVP ONE (04:33)
[2018-07-04 07:58] VITALS: BP 106/79
[2018-07-04 08:20] VITALS: BP 111/71
[2018-07-04 08:25] VITALS: BP 122/83
[2018-07-04 08:30] VITALS: BP 111/63
[2018-07-04 08:35] VITALS: BP 114/71
== END 2018-07-24 | disposition home or self-care (01) ==
LOC: ECT 04:32
DX: F25.9 Schizoaffective disorder, unspecified (principal)
CPT/HCPCS: 90870; J0330; J2250; J7040

== ENCOUNTER 2018-08-08 07:41 | Outpatient (RCR) | payer MEDICARE, MEDICAID ==
[~2018-08-08] VITALS: Ht 180.3 cm; Wt 65.3 kg
[2018-08-08] MEDS ORDERED: Glycopyrrolate 0.2mg/ml 1ml Vial ONE (07:42)
[2018-08-08] MEDS ORDERED: NS 500ML ONE (07:42)
[2018-08-08] MEDS ORDERED: Succinylcholine 20mg/ml 10ml vial ONE (07:42)
[2018-08-08] MEDS ORDERED: Methohexital Sodium Syr 100mg/10ml IVP ONE (07:42)
[2018-08-08] MEDS ORDERED: Midazolam 2mg/2ml Inj ONE (07:42)
[2018-08-08 07:58] VITALS: BP 101/70
[2018-08-08 08:15] VITALS: BP 114/63
[2018-08-08 08:20] VITALS: BP 109/61
[2018-08-08 08:25] VITALS: BP 107/62
[2018-08-08 08:30] VITALS: BP 109/57
== END 2018-08-23 | disposition home or self-care (01) ==
LOC: ECT 07:41
DX: F25.9 Schizoaffective disorder, unspecified (principal)
CPT/HCPCS: 90870; J0330; J2250; J7040

== ENCOUNTER 2018-09-09 04:21 | Outpatient (RCR) | payer MEDICARE, MEDICAID ==
[~2018-09-09] VITALS: Ht 180.3 cm; Wt 65.3 kg
[2018-09-09] MEDS ORDERED: Glycopyrrolate 0.2mg/ml 1ml Vial ONE (04:22)
[2018-09-09] MEDS ORDERED: Succinylcholine 20mg/ml 10ml vial ONE (04:22)
[2018-09-09] MEDS ORDERED: NS 500ML ONE (04:22)
[2018-09-09] MEDS ORDERED: Midazolam 2mg/2ml Inj ONE (04:22)
[2018-09-09] MEDS ORDERED: Methohexital Sodium Syr 100mg/10ml IVP ONE (04:22)
[2018-09-09 07:58] VITALS: BP 102/71
[2018-09-09 08:09] VITALS: BP 117/67
[2018-09-09 08:14] VITALS: BP 107/61
[2018-09-09 08:19] VITALS: BP 106/61
[2018-09-09 08:24] VITALS: BP 109/62
== END 2018-09-23 | disposition home or self-care (01) ==
LOC: ECT 04:21
DX: F25.9 Schizoaffective disorder, unspecified (principal)
CPT/HCPCS: 90870; J0330; J2250; J7040

== ENCOUNTER 2018-10-14 04:31 | Outpatient (RCR) | payer MEDICARE, MEDICAID ==
[~2018-10-14] VITALS: Ht 180.3 cm; Wt 65.3 kg
[2018-10-14] MEDS ORDERED: Midazolam 2mg/2ml Inj ONE (07:00)
[2018-10-14] MEDS ORDERED: Succinylcholine 20mg/ml 10ml vial ONE (07:00)
[2018-10-14] MEDS ORDERED: NS 500ML ONE (07:00)
[2018-10-14] MEDS ORDERED: Methohexital Sodium Syr 100mg/10ml IVP ONE (07:00)
[2018-10-14] MEDS ORDERED: Glycopyrrolate 0.2mg/ml 1ml Vial ONE (07:00)
[2018-10-14 07:25] VITALS: BP 102/75
[2018-10-14 07:45] VITALS: BP 104/49
[2018-10-14 07:50] VITALS: BP 104/55
[2018-10-14 07:55] VITALS: BP 111/36
[2018-10-14 08:00] VITALS: BP 102/55
== END 2018-10-23 | disposition home or self-care (01) ==
LOC: ECT 04:31
DX: F25.9 Schizoaffective disorder, unspecified (principal)
CPT/HCPCS: 90870; J0330; J2250; J7040

== ENCOUNTER 2018-11-18 04:41 | Outpatient (RCR) | payer MEDICARE, MEDICAID ==
[~2018-11-18] VITALS: Ht 30.5 cm; Wt 0.5 kg
[2018-11-18] MEDS ORDERED: Midazolam 2mg/2ml Inj ONE (04:42)
[2018-11-18] MEDS ORDERED: Succinylcholine 20mg/ml 10ml vial ONE (04:42)
[2018-11-18] MEDS ORDERED: NS 500ML ONE (04:42)
[2018-11-18] MEDS ORDERED: Methohexital Sodium 500mg Vial IVP ONE (04:42)
[2018-11-18] MEDS ORDERED: Glycopyrrolate 0.2mg/ml 1ml Vial ONE (04:42)
[2018-11-18 07:48] VITALS: BP 101/73
[2018-11-18 08:05] VITALS: BP 107/60
[2018-11-18 08:10] VITALS: BP 107/60
[2018-11-18 08:15] VITALS: BP 105/65
[2018-11-18 08:20] VITALS: BP 108/64
== END 2018-11-23 | disposition home or self-care (01) ==
LOC: ECT 04:41
DX: F25.9 Schizoaffective disorder, unspecified (principal)
CPT/HCPCS: 90870; J0330; J2250; J3490; J7040

== ENCOUNTER 2018-12-23 04:42 | Outpatient (RCR) | payer MEDICARE, MEDICAID ==
[~2018-12-23] VITALS: Ht 180.3 cm; Wt 65.3 kg
[2018-12-23] MEDS ORDERED: Methohexital Sodium Syr 100mg/10ml IVP ONE (06:00)
[2018-12-23] MEDS ORDERED: Succinylcholine 20mg/ml 10ml vial ONE (06:00)
[2018-12-23] MEDS ORDERED: Glycopyrrolate 0.2mg/ml 1ml Vial ONE (06:00)
[2018-12-23] MEDS ORDERED: NS 500ML ONE (06:00)
[2018-12-23] MEDS ORDERED: Midazolam 2mg/2ml Inj ONE (06:00)
[2018-12-23 07:56] VITALS: BP 98/75
[2018-12-23 08:15] VITALS: BP 114/57
[2018-12-23 08:20] VITALS: BP 119/61
[2018-12-23 08:25] VITALS: BP 118/54
[2018-12-23 08:30] VITALS: BP 99/49
== END 2018-12-24 | disposition home or self-care (01) ==
LOC: ECT 04:42
DX: F25.9 Schizoaffective disorder, unspecified (principal)
CPT/HCPCS: 90870; J0330; J2250; J7040

== ENCOUNTER 2019-07-07 08:46 | Outpatient (RCR) | payer MEDICARE, MEDICAID ==
[~2019-07-07] VITALS: Ht 180.3 cm; Wt 65.3 kg
[2019-07-07 08:19] VITALS: BP 115/86
[2019-07-07 08:30] VITALS: BP 119/67
[2019-07-07 08:35] VITALS: BP 110/67
[2019-07-07 08:40] VITALS: BP 106/67
[2019-07-07 08:45] VITALS: BP 106/60
[2019-07-07] MEDS ORDERED: Succinylcholine 20mg/ml 10ml vial ONE ×2 (08:47)
[2019-07-07] MEDS ORDERED: Glycopyrrolate 0.2mg/ml 1ml Vial ONE ×2 (08:47)
[2019-07-07] MEDS ORDERED: Ketorolac 30mg Inj ONE (08:47)
[2019-07-07] MEDS ORDERED: Flumazenil 0.1mg/ml 5ml Inj IV ONE (08:47)
[2019-07-07] MEDS ORDERED: Methohexital Sodium Syr 100mg/10ml IVP ONE ×2 (08:47)
[2019-07-07] MEDS ORDERED: NS 500ML ONE ×2 (08:47)
[2019-07-07] MEDS ORDERED: Midazolam 2mg/2ml Inj ONE ×2 (08:47)
[2019-07-10] MEDS ORDERED: Glycopyrrolate 0.2mg/ml 1ml Vial ONE (08:00)
[2019-07-10] MEDS ORDERED: Methohexital Sodium Syr 100mg/10ml IVP ONE (08:00)
[2019-07-10] MEDS ORDERED: Succinylcholine 20mg/ml 10ml vial ONE (08:00)
[2019-07-10] MEDS ORDERED: NS 500ML ONE (08:00)
[2019-07-10] MEDS ORDERED: Midazolam 2mg/2ml Inj ONE (08:00)
[2019-07-10 10:02] VITALS: BP 119/83
[2019-07-10 10:17] VITALS: BP 118/58
[2019-07-10 10:22] VITALS: BP 119/65
[2019-07-10 10:27] VITALS: BP 118/64
[2019-07-10 10:30] VITALS: BP 118/72
[2019-07-10 10:32] VITALS: BP 118/72
[2019-07-12] MEDS ORDERED: NS 500ML ONE (06:00)
[2019-07-12] MEDS ORDERED: Midazolam 2mg/2ml Inj ONE (06:00)
[2019-07-12] MEDS ORDERED: Glycopyrrolate 0.2mg/ml 1ml Vial ONE (06:00)
[2019-07-12] MEDS ORDERED: Methohexital Sodium Syr 100mg/10ml IVP ONE (06:00)
[2019-07-12] MEDS ORDERED: Succinylcholine 20mg/ml 10ml vial ONE (06:00)
[2019-07-12 10:36] VITALS: BP 117/80
[2019-07-12 10:50] VITALS: BP 105/52
[2019-07-12 10:55] VITALS: BP 110/65
[2019-07-12 11:00] VITALS: BP 118/59
[2019-07-12 11:05] VITALS: BP 118/68
[2019-07-14] VITALS (8 sets, daily range): BP systolic 114–166; BP diastolic 51–98
[2019-07-14] MEDS ORDERED: Ketorolac 30mg Inj IM ONE (08:27)
[2019-07-17] MEDS ORDERED: NS 500ML ONE (09:00)
[2019-07-17] MEDS ORDERED: Glycopyrrolate 0.2mg/ml 1ml Vial ONE (09:00)
[2019-07-17] MEDS ORDERED: Methohexital Sodium Syr 100mg/10ml IVP ONE (09:00)
[2019-07-17] MEDS ORDERED: Succinylcholine 20mg/ml 10ml vial ONE (09:00)
[2019-07-17] MEDS ORDERED: Midazolam 2mg/2ml Inj ONE (09:00)
[2019-07-17 10:19] VITALS: BP 118/86
[2019-07-17 10:35] VITALS: BP 116/63
[2019-07-17 10:40] VITALS: BP 119/44
[2019-07-17 10:45] VITALS: BP 120/58
[2019-07-17 10:50] VITALS: BP 114/60
[2019-07-19] MEDS ORDERED: Succinylcholine 20mg/ml 10ml vial ONE (09:00)
[2019-07-19] MEDS ORDERED: Methohexital Sodium Syr 100mg/10ml IVP ONE (09:00)
[2019-07-19] MEDS ORDERED: Glycopyrrolate 0.2mg/ml 1ml Vial ONE (09:00)
[2019-07-19] MEDS ORDERED: NS 500ML ONE (09:00)
[2019-07-19 09:17] VITALS: BP 101/71
[2019-07-19 09:35] VITALS: BP 102/51
[2019-07-19 09:40] VITALS: BP 97/56
[2019-07-19 09:45] VITALS: BP 96/54
[2019-07-19 09:50] VITALS: BP 97/50
[2019-07-21] MEDS ORDERED: NS 500ML ONE (06:00)
[2019-07-21] MEDS ORDERED: Glycopyrrolate 0.2mg/ml 1ml Vial ONE (06:00)
[2019-07-21] MEDS ORDERED: Midazolam 2mg/2ml Inj ONE (06:00)
[2019-07-21] MEDS ORDERED: Succinylcholine 20mg/ml 10ml vial ONE (06:00)
[2019-07-21] MEDS ORDERED: Methohexital Sodium Syr 100mg/10ml IVP ONE (06:00)
[2019-07-21 09:36] VITALS: BP 102/74
[2019-07-21 09:50] VITALS: BP 109/65
[2019-07-21 09:55] VITALS: BP 118/25
[2019-07-21 10:00] VITALS: BP 107/61
[2019-07-21 10:05] VITALS: BP 109/41
[2019-07-24] MEDS ORDERED: Succinylcholine 20mg/ml 10ml vial ONE (09:00)
[2019-07-24] MEDS ORDERED: NS 500ML ONE (09:00)
[2019-07-24] MEDS ORDERED: Methohexital Sodium Syr 100mg/10ml IVP ONE (09:00)
[2019-07-24] MEDS ORDERED: Midazolam 2mg/2ml Inj ONE (09:00)
[2019-07-24] MEDS ORDERED: Glycopyrrolate 0.2mg/ml 1ml Vial ONE (09:00)
[2019-07-24 10:14] VITALS: BP 99/67
[2019-07-24] MEDS ORDERED: Atropine Sulfate 0.4mg/ml inj IVP PRN (10:34)
[2019-07-24] MEDS ORDERED: Lidocaine 2% 100mg/5ml Carp IV PRN (10:34)
[2019-07-24 10:35] VITALS: BP 116/52
[2019-07-24 10:40] VITALS: BP 105/41
[2019-07-24 10:45] VITALS: BP 128/24
[2019-07-24 10:50] VITALS: BP 121/49
== END 2019-07-25 | disposition home or self-care (01) ==
LOC: ECT 08:46
DX: F25.9 Schizoaffective disorder, unspecified (principal)
CPT/HCPCS: 90870; J0330; J1885; J2250; J7040

== ENCOUNTER 2019-07-26 08:48 | Outpatient (RCR) | payer MEDICARE, MEDICAID ==
[~2019-07-26] VITALS: Ht 180.3 cm; Wt 65.3 kg
[2019-07-26] MEDS ORDERED: Methohexital Sodium Syr 100mg/10ml IVP ONE ×3 (08:49)
[2019-07-26] MEDS ORDERED: Midazolam 2mg/2ml Inj ONE ×3 (08:49)
[2019-07-26] MEDS ORDERED: Succinylcholine 20mg/ml 10ml vial ONE ×3 (08:49)
[2019-07-26] MEDS ORDERED: Glycopyrrolate 0.2mg/ml 1ml Vial ONE ×3 (08:49)
[2019-07-26] MEDS ORDERED: NS 500ML ONE ×3 (08:49)
[2019-07-26 11:02] VITALS: BP 102/73
[2019-07-26 11:20] VITALS: BP 108/54
[2019-07-26 11:25] VITALS: BP 105/51
[2019-07-26 11:30] VITALS: BP 107/61
[2019-07-26 11:35] VITALS: BP 107/58
[2019-07-28] MEDS ORDERED: Glycopyrrolate 0.2mg/ml 1ml Vial ONE (06:00)
[2019-07-28] MEDS ORDERED: Midazolam 2mg/2ml Inj ONE (06:00)
[2019-07-28] MEDS ORDERED: Methohexital Sodium Syr 100mg/10ml IVP ONE (06:00)
[2019-07-28] MEDS ORDERED: Succinylcholine 20mg/ml 10ml vial ONE (06:00)
[2019-07-28] MEDS ORDERED: NS 500ML ONE (06:00)
[2019-07-28 10:56] VITALS: BP 99/72
[2019-07-28 11:15] VITALS: BP 118/68
[2019-07-28 11:20] VITALS: BP 113/61
[2019-07-28 11:25] VITALS: BP 107/35
[2019-07-28 11:30] VITALS: BP 111/53
[2019-07-31] MEDS ORDERED: Methohexital Sodium Syr 100mg/10ml IVP ONE (07:00)
[2019-07-31] MEDS ORDERED: Glycopyrrolate 0.2mg/ml 1ml Vial ONE (07:00)
[2019-07-31] MEDS ORDERED: Midazolam 2mg/2ml Inj ONE (07:00)
[2019-07-31] MEDS ORDERED: NS 500ML ONE (07:00)
[2019-07-31] MEDS ORDERED: Succinylcholine 20mg/ml 10ml vial ONE (07:00)
[2019-07-31 09:44] VITALS: BP 105/74
[2019-07-31 10:05] VITALS: BP 105/74
[2019-07-31 10:10] VITALS: BP 83/47
[2019-07-31 10:15] VITALS: BP_SYST 103; BP_SYST 109; BP_DIAS 60
[2019-08-02 09:34] VITALS: BP 107/79
[2019-08-02 09:55] VITALS: BP 106/62
[2019-08-02 10:00] VITALS: BP 104/62
[2019-08-02 10:05] VITALS: BP 106/68
[2019-08-02 10:10] VITALS: BP 108/67
[2019-08-04 10:55] VITALS: BP 119/83
[2019-08-04 11:15] VITALS: BP 114/60
[2019-08-04 11:20] VITALS: BP 120/71
[2019-08-04 11:25] VITALS: BP 109/64
[2019-08-04 11:30] VITALS: BP 106/44
[2019-08-07] MEDS ORDERED: Midazolam 2mg/2ml Inj ONE (06:00)
[2019-08-07] MEDS ORDERED: Methohexital Sodium Syr 100mg/10ml IVP ONE (06:00)
[2019-08-07] MEDS ORDERED: Succinylcholine 20mg/ml 10ml vial ONE (06:00)
[2019-08-07] MEDS ORDERED: NS 500ML ONE (06:00)
[2019-08-07] MEDS ORDERED: Glycopyrrolate 0.2mg/ml 1ml Vial ONE (06:00)
[2019-08-07 08:38] VITALS: BP 115/83
[2019-08-07 08:54] VITALS: BP 119/59
[2019-08-07] MEDS ORDERED: Atropine Sulfate 0.4mg/ml inj IVP PRN (08:54)
[2019-08-07] MEDS ORDERED: Lidocaine 2% 100mg/5ml Carp IV PRN (08:54)
[2019-08-07 08:59] VITALS: BP 111/65
[2019-08-07 09:04] VITALS: BP 110/63
[2019-08-07 09:09] VITALS: BP 113/67
[2019-08-09] MEDS ORDERED: Succinylcholine 20mg/ml 10ml vial ONE (09:00)
[2019-08-09] MEDS ORDERED: Glycopyrrolate 0.2mg/ml 1ml Vial ONE (09:00)
[2019-08-09] MEDS ORDERED: Methohexital Sodium Syr 100mg/10ml IVP ONE (09:00)
[2019-08-09] MEDS ORDERED: NS 500ML ONE (09:00)
[2019-08-09 10:59] VITALS: BP 111/76
[2019-08-09 11:15] VITALS: BP 142/86
[2019-08-09 11:20] VITALS: BP 100/47
[2019-08-09 11:25] VITALS: BP 111/75
[2019-08-09 11:30] VITALS: BP 117/43
[2019-08-11] MEDS ORDERED: Glycopyrrolate 0.2mg/ml 1ml Vial ONE (09:00)
[2019-08-11] MEDS ORDERED: Methohexital Sodium Syr 100mg/10ml IVP ONE (09:00)
[2019-08-11] MEDS ORDERED: NS 500ML ONE (09:00)
[2019-08-11] MEDS ORDERED: Midazolam 2mg/2ml Inj ONE (09:00)
[2019-08-11] MEDS ORDERED: Succinylcholine 20mg/ml 10ml vial ONE (09:00)
[2019-08-11 11:19] VITALS: BP 114/83
[2019-08-11 11:41] VITALS: BP 115/63
[2019-08-11 11:46] VITALS: BP 116/62
[2019-08-11 11:51] VITALS: BP 120/72
[2019-08-11 11:56] VITALS: BP 111/65
[2019-08-14] MEDS ORDERED: Succinylcholine 20mg/ml 10ml vial ONE (09:00)
[2019-08-14] MEDS ORDERED: Methohexital Sodium Syr 100mg/10ml IVP ONE (09:00)
[2019-08-14] MEDS ORDERED: Midazolam 2mg/2ml Inj ONE (09:00)
[2019-08-14] MEDS ORDERED: NS 500ML ONE (09:00)
[2019-08-14] MEDS ORDERED: Glycopyrrolate 0.2mg/ml 1ml Vial ONE (09:00)
[2019-08-14 12:16] VITALS: BP 103/67
[2019-08-14 12:39] VITALS: BP 123/43
[2019-08-14 12:44] VITALS: BP 100/67
[2019-08-14 12:49] VITALS: BP 121/68
[2019-08-14 12:54] VITALS: BP 118/74
[2019-08-18] MEDS ORDERED: Methohexital Sodium Syr 100mg/10ml IVP ONE (06:00)
[2019-08-18] MEDS ORDERED: Glycopyrrolate 0.2mg/ml 1ml Vial ONE (06:00)
[2019-08-18] MEDS ORDERED: Midazolam 2mg/2ml Inj ONE (06:00)
[2019-08-18] MEDS ORDERED: NS 500ML ONE (06:00)
[2019-08-18] MEDS ORDERED: Succinylcholine 20mg/ml 10ml vial ONE (06:00)
[2019-08-18 10:25] VITALS: BP 109/78
[2019-08-18 10:38] VITALS: BP 120/56
[2019-08-18 10:43] VITALS: BP 108/59
[2019-08-18 10:48] VITALS: BP 117/68
[2019-08-18 10:53] VITALS: BP 111/65
[2019-08-21] MEDS ORDERED: Methohexital Sodium Syr 100mg/10ml IVP ONE (06:00)
[2019-08-21] MEDS ORDERED: NS 500ML ONE (06:00)
[2019-08-21] MEDS ORDERED: Midazolam 2mg/2ml Inj ONE (06:00)
[2019-08-21] MEDS ORDERED: Succinylcholine 20mg/ml 10ml vial ONE (06:00)
[2019-08-21] MEDS ORDERED: Glycopyrrolate 0.2mg/ml 1ml Vial ONE (06:00)
[2019-08-21 09:43] VITALS: BP 115/72
[2019-08-21 09:56] VITALS: BP 120/63
[2019-08-21 10:01] VITALS: BP 114/61
[2019-08-21 10:06] VITALS: BP 112/67
[2019-08-21 10:11] VITALS: BP 120/68
== END 2019-08-24 | disposition home or self-care (01) ==
LOC: ECT 08:48
DX: F25.9 Schizoaffective disorder, unspecified (principal)
CPT/HCPCS: 90870; J0330; J2250; J7040

== ENCOUNTER 2019-08-25 06:17 | Outpatient (RCR) | payer MEDICARE, MEDICAID ==
[~2019-08-25] VITALS: Ht 180.3 cm; Wt 65.3 kg
[2019-08-25] MEDS ORDERED: NS 500ML ONE ×2 (06:18)
[2019-08-25] MEDS ORDERED: Etomidate 40mg/20ml Inj IV ONE ×2 (06:18)
[2019-08-25] MEDS ORDERED: Glycopyrrolate 0.2mg/ml 1ml Vial ONE ×2 (06:18)
[2019-08-25] MEDS ORDERED: Succinylcholine 20mg/ml 10ml vial ONE ×2 (06:18)
[2019-08-25] MEDS ORDERED: Midazolam 2mg/2ml Inj ONE ×2 (06:18)
[2019-08-25] MEDS ORDERED: Methohexital Sodium Syr 100mg/10ml IVP ONE (06:18)
[2019-08-25 09:48] VITALS: BP 106/74
[2019-08-25] MEDS ORDERED: Lidocaine 2% 100mg/5ml Carp IV PRN (10:09)
[2019-08-25] MEDS ORDERED: Atropine Sulfate 0.4mg/ml inj IVP PRN (10:09)
[2019-08-25 10:10] VITALS: BP 122/75
[2019-08-25 10:15] VITALS: BP 122/75
[2019-08-25 10:20] VITALS: BP 116/39
[2019-08-25 10:25] VITALS: BP 112/67
[2019-08-30] MEDS ORDERED: Methohexital Sodium Syr 100mg/10ml IVP ONE (09:00)
[2019-08-30] MEDS ORDERED: NS 500ML ONE (09:00)
[2019-08-30] MEDS ORDERED: Glycopyrrolate 0.2mg/ml 1ml Vial ONE (09:00)
[2019-08-30] MEDS ORDERED: Midazolam 2mg/2ml Inj ONE (09:00)
[2019-08-30] MEDS ORDERED: Succinylcholine 20mg/ml 10ml vial ONE (09:00)
[2019-08-30 09:49] VITALS: BP 108/76
[2019-08-30 10:05] VITALS: BP 108/60
[2019-08-30 10:10] VITALS: BP 104/63
[2019-08-30 10:15] VITALS: BP 112/64
[2019-08-30 10:20] VITALS: BP 105/62
[2019-09-06] MEDS ORDERED: NS 500ML ONE (09:00)
[2019-09-06] MEDS ORDERED: Glycopyrrolate 0.2mg/ml 1ml Vial ONE (09:00)
[2019-09-06] MEDS ORDERED: Midazolam 2mg/2ml Inj ONE (09:00)
[2019-09-06] MEDS ORDERED: Succinylcholine 20mg/ml 10ml vial ONE (09:00)
[2019-09-06] MEDS ORDERED: Methohexital Sodium Syr 100mg/10ml IVP ONE (09:00)
[2019-09-06 10:25] VITALS: BP 118/80
[2019-09-06 10:47] VITALS: BP 127/79
[2019-09-06] MEDS ORDERED: Lidocaine 2% 100mg/5ml Carp IV PRN (10:47)
[2019-09-06] MEDS ORDERED: Atropine Sulfate 0.4mg/ml inj IVP PRN (10:47)
[2019-09-06 10:52] VITALS: BP 134/35
[2019-09-06 10:57] VITALS: BP 124/88
[2019-09-06 11:02] VITALS: BP 99/59
[2019-09-15] MEDS ORDERED: Etomidate 40mg/20ml Inj IV SCH (09:45)
[2019-09-15 09:59] VITALS: BP 106/80
[2019-09-15 10:14] VITALS: BP 119/70
[2019-09-15 10:19] VITALS: BP 120/68
[2019-09-15 10:24] VITALS: BP 121/66
[2019-09-15 10:29] VITALS: BP 124/66
== END 2019-09-24 | disposition home or self-care (01) ==
LOC: ECT 06:17
DX: F25.9 Schizoaffective disorder, unspecified (principal)
CPT/HCPCS: 90870; J0330; J2250; J7040

== ENCOUNTER 2019-09-27 06:15 | Outpatient (RCR) | payer MEDICARE, MEDICAID ==
[~2019-09-27] VITALS: Ht 180.3 cm; Wt 65.3 kg
[2019-09-27] MEDS ORDERED: Glycopyrrolate 0.2mg/ml 1ml Vial ONE (06:16)
[2019-09-27] MEDS ORDERED: Midazolam 2mg/2ml Inj ONE (06:16)
[2019-09-27] MEDS ORDERED: Succinylcholine 20mg/ml 10ml vial ONE (06:16)
[2019-09-27] MEDS ORDERED: NS 500ML ONE (06:16)
[2019-09-27] MEDS ORDERED: Etomidate 40mg/20ml Inj IV ONE (06:16)
[2019-09-27 10:42] VITALS: BP 100/72
[2019-09-27 10:55] VITALS: BP 140/76
[2019-09-27 11:00] VITALS: BP 130/76
[2019-09-27 11:05] VITALS: BP 115/70
[2019-09-27 11:10] VITALS: BP 112/66
[2019-10-16] MEDS ORDERED: Glycopyrrolate 0.2mg/ml 1ml Vial ONE (06:00)
[2019-10-16] MEDS ORDERED: Succinylcholine 20mg/ml 10ml vial ONE (06:00)
[2019-10-16] MEDS ORDERED: Midazolam 2mg/2ml Inj ONE (06:00)
[2019-10-16] MEDS ORDERED: Etomidate 40mg/20ml Inj IV ONE (06:00)
[2019-10-16] MEDS ORDERED: NS 500ML ONE (06:00)
[2019-10-16 10:38] VITALS: BP 109/76
[2019-10-16] MEDS ORDERED: Lidocaine 2% 100mg/5ml Carp IV PRN (10:59)
[2019-10-16] MEDS ORDERED: Atropine Sulfate 0.4mg/ml inj IVP PRN (10:59)
[2019-10-16 11:00] VITALS: BP 122/71
[2019-10-16 11:05] VITALS: BP 121/66
[2019-10-16 11:10] VITALS: BP 118/62
[2019-10-16 11:15] VITALS: BP 103/63
== END 2019-10-24 | disposition home or self-care (01) ==
LOC: ECT 06:15
DX: F25.9 Schizoaffective disorder, unspecified (principal)
CPT/HCPCS: 90870; J0330; J2250; J7040

== ENCOUNTER 2019-11-08 06:36 | Outpatient (RCR) | payer MEDICARE, MEDICAID ==
[~2019-11-08] VITALS: Ht 30.5 cm; Wt 0.5 kg
[2019-11-08] MEDS ORDERED: Etomidate 40mg/20ml Inj IV ONE (06:37)
[2019-11-08] MEDS ORDERED: Succinylcholine 20mg/ml 10ml vial ONE (06:37)
[2019-11-08] MEDS ORDERED: Glycopyrrolate 0.2mg/ml 1ml Vial ONE (06:37)
[2019-11-08] MEDS ORDERED: NS 500ML ONE (06:37)
[2019-11-08 10:11] VITALS: BP 112/68
[2019-11-08 10:24] VITALS: BP 124/71
[2019-11-08 10:29] VITALS: BP 121/72
[2019-11-08 10:34] VITALS: BP 113/61
[2019-11-08 10:39] VITALS: BP 112/68
== END 2019-11-24 | disposition home or self-care (01) ==
LOC: ECT 06:36
DX: F25.9 Schizoaffective disorder, unspecified (principal)
CPT/HCPCS: 90870; J0330; J2405; J7040

== ENCOUNTER 2019-12-04 06:38 | Outpatient (RCR) | payer MEDICARE, MEDICAID ==
[2019-12-04] VITALS (7 sets, daily range): BP systolic 102–111; BP diastolic 49–71
[~2019-12-04] VITALS: Ht 30.5 cm; Wt 0.5 kg
[2019-12-04] MEDS ORDERED: Etomidate 40mg/20ml Inj IV ONE (07:00)
[2019-12-04] MEDS ORDERED: Midazolam 2mg/2ml Inj ONE (07:00)
[2019-12-04] MEDS ORDERED: NS 500ML ONE (07:00)
[2019-12-04] MEDS ORDERED: Succinylcholine 20mg/ml 10ml vial ONE (07:00)
[2019-12-04] MEDS ORDERED: Glycopyrrolate 0.2mg/ml 1ml Vial ONE (07:00)
[2019-12-04] MEDS ORDERED: Lidocaine 2% 100mg/5ml Carp IV PRN (09:44)
[2019-12-04] MEDS ORDERED: Atropine Sulfate 0.4mg/ml inj IVP PRN (09:44)
== END 2019-12-25 | disposition home or self-care (01) ==
LOC: ECT 06:38
DX: F25.9 Schizoaffective disorder, unspecified (principal)
CPT/HCPCS: 90870; J0330; J2250; J7040